=== PATIENT | female | born 1985 | race Caucasian/White ===

== ENCOUNTER → 2016-11-02 | Outpatient (CLI) | payer OTHER, MEDICAID | END | disposition disaster alternative care site (69) | LOC: GLAB 09:46 | DX: O20.0 Threatened abortion (principal) ==

== ENCOUNTER → 2016-11-12 | Outpatient (CLI) | payer MEDICAID ==
[2016-11-12 09:43] LABS: HEMATOCRIT 43.2 % (33.0-46.0); HEMOGLOBIN 14.1 g/dL (11.0-15.0); MCH 28.8 pg (27.0-34.0); MCHC 32.6 gm/dL (32.0-36.5); MCV 88.3 fl (83.0-98.0); MPV 10.1 fl (9.4-12.4); PLATELET COUNT 329 K/uL (150-450); RBC 4.89 M/uL (3.50-5.50); RDW-CV 13.2 % (11.9-14.6); WBC 8.6 K/uL (4.0-11.0)
[2016-11-12 09:58] LABS: ALBUMIN 3.6 gm/dL (3.5-5.0); ALK PHOS 51 IU/L (33-138); ALT 22 IU/L (12-78); AST 11 IU/L (10-40); BLOOD UREA NITROGEN 7 mg/dL (6-24); CALCIUM 8.8 mg/dL (8.5-10.5); CHLORIDE 105 mMol/L (96-110); CO2 27 mMol/L (22-32); CREATININE 0.8 mg/dL (0.5-1.1); ESTIMATED GFR (MDRD EQUATION) > 60; SODIUM 141 mMol/L (135-145); TOTAL BILIRUBIN 0.4 mg/dL (0.0-1.5); TOTAL PROTEIN 7.4 g/dL (6.0-8.4)
[2016-11-12 10:09] LABS: ABSOLUTE NEUTROPHIL CT (ANC) 5.8 K/uL (1.8-7.8); BANDED NEUTROPHIL # 0.3 K/uL (0.0-0.1); BANDED NEUTROPHILS % 3 %; LYMPHOCYTE # 2.2 K/uL (0.8-4.0); LYMPHOCYTE % 26 %; MONOCYTE # 0.6 K/uL (0.0-1.0); SEGMENTED NEUTROPHIL # 5.5 K/uL (1.8-7.8); SEGMENTED NEUTROPHIL % 64 %
== END | disposition disaster alternative care site (69) ==
LOC: LCOBG 09:38
PROVIDERS: Obstetrics & Gynecology
DX: O20.0 Threatened abortion (principal)